=== PATIENT | male | born 1965 | race Asian ===

== ENCOUNTER 2018-11-13 13:31 | Emergency (ER) | payer SELFPAY ==
[~2018-11-13] VITALS: Ht 152.4 cm; Wt 62.5 kg
[2018-11-13 13:33] VITALS: Ht 152.4 cm; Wt 62.5 kg
[2018-11-13] MEDS ORDERED: BACITRACIN/POLYMYXIN 28.35 GM OINT TOP ONE (14:30)
[2018-11-13] MEDS ORDERED: morphine 4 MG/ML VIAL IV STA (15:12)
[2018-11-13 18:02] VITALS: BP 164/77; PULSE 68; RESP 16
== END 2018-11-13 18:06 | disposition home or self-care (01) ==
LOC: E/R 13:31
DX: T22.212A Burn of second degree of left forearm, initial encounter (principal); T23.232A Burn of second degree of multiple left fingers (nail), not including thumb, initial encounter; T22.111A Burn of first degree of right forearm, initial encounter; R07.9 Chest pain, unspecified; X19.XXXA Contact with other heat and hot substances, initial encounter; Y92.89 Other specified places as the place of occurrence of the external cause
CPT/HCPCS: 16000; 36415; 71045; 80053; 82550; 85025; 93005; 96374; 99285; J2270